=== PATIENT | male | born 1935 | race Caucasian/White ===

== ENCOUNTER 2019-09-15 20:29 | Inpatient (IN) | payer BC, MEDICARE ==
[~2019-09-15] VITALS: Ht 175.3 cm; Wt 74.5 kg
[~2019-09-15 20:29] MED LIST: AMIO200T4 PO; ASPI-630 PO; METO25TA4 PO; OXYC1TAB15 PO; WARF1TAB2 PO
[2019-09-15] MEDS ORDERED: IOHEXOL 350 MG/ML 100 ML VIAL. IV ONE (20:45)
--- NOTE | 2019-09-15 20:55 | RAD ---
INDICATION: Reason: ataxia / Spl. Instructions: / History: COMPARISON: None. TECHNIQUE: Axial CT images obtained through the head without intravenous contrast. One or more of the following individualized dose reduction techniques were utilized for this examination: 1. Automated exposure control; 2. Adjustment of the mA and/or kV according to patient size; 3. Use of iterative reconstruction technique. FINDINGS: No intracranial hemorrhage. No midline shift. Basal cisterns patents. Ventricles and sulci are globally prominent. No acute osseous abnormality. Orbits and paranasal sinuses unremarkable. Scattered foci of low attenuation within the white matter. IMPRESSION: 1. No acute intracranial hemorrhage. 2. Scattered regions of low attenuation within the white matter. Non-specific in nature but frequently secondary to small vessel ischemic disease. If there is clinical concern for acute cause MRI to better assess whether any of these foci are acute. 3. Prominence of ventricles and sulci which is frequently secondary to age related volume loss. 4. Report called to the patient's floor at 8:48 PM on date of exam. Electronically signed by: Jordon James MD (09/15/2019 8:52 PM) [id number]
[2019-09-15] MEDS ORDERED: CONTRAST GIVEN. MC PRN (21:00)
--- NOTE | 2019-09-15 21:08 | RAD ---
Exam: CTA head and neck INDICATION: Ataxia, left side TECHNIQUE: Sequential axial images through the head and neck obtained following the administration of 75 mL of Isovue-370 IV contrast. Sagittal and coronal reformatted images were reconstructed from the axial data and reviewed. 3-D reformatted images were reconstructed from the axial data and reviewed. Comparisons: CT head without contrast same day FINDINGS: CTA neck neck: Visualized portions of the vascular aorta are unremarkable. 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 Right common carotid artery is patent without evidence of stenosis, occlusion or aneurysm. Mild calcified plaque at the origin of the right internal carotid artery without significant stenosis. Left common carotid artery is patent without evidence of stenosis, occlusion or aneurysm. Mild calcified plaque at the origin of the left internal carotid artery without significant stenosis. Right vertebral artery is patent and terminates as the right PICA. Left vertebral artery is patent without evidence of stenosis, occlusion or aneurysm. Visualized soft tissues are unremarkable. CTA HEAD: Intracranial segments of the right internal carotid artery are patent without evidence of stenosis, occlusion or aneurysm. Right MCA is patent. Right JOJO is patent. Intracranial segments of the left internal carotid artery are patent without evidence of stenosis, occlusion or aneurysm. Left MCA is patent. Left JOJO is patent. Basilar artery is patent without evidence of stenosis, occlusion or aneurysm. precision assembly inspector are patent bilaterally. IMPRESSION: 1. No large vessel occlusion. 2. Mild plaque at the origin of the internal carotid arteries bilaterally without significant stenosis. Exposure: One or more of the following in the visualized dose reduction techniques were utilized for this examination: 1. Automated exposure control 2. Adjustment of the MA and/or KV according to patient size 3. Use of iterative of reconstructive technique FOR INTERNAL CODING PURPOSES Critical result: Findings discussed with Rahsida SAHA at 09/15/2019 9:02 PM. RESULT CODE: (C) Electronically signed by: Sandy Florez MD (09/15/2019 9:06 PM) [id number]
[2019-09-15] MEDS ORDERED: LABETALOL 20 MG/4 ML DISP.SYRIN. IVP PRN (21:15)
[2019-09-15 21:18] LABS: BASO # 0.1 x10^3/uL (0.0-0.2); BASO % 1 % (0-3); EOS # 0.2 x10^3/uL (0.0-0.7); EOS % 3 % (0-3); HEMOGLOBIN 13.1 g/dL (13.0-17.5); LYMPH # 1.7 x10^3/uL (1.0-4.8); LYMPH % 25 % (24-48); MEAN CORPUSCULAR HEMOGLOBIN 31 pg (25-35); MEAN CORPUSCULAR HGB CONC 35 g/dL (31-37); MEAN CORPUSCULAR VOLUME 87 fL (79-100); MONO # 0.7 x10^3/uL (0.0-1.1); MONO % 10 % (0-9); NEUT # 4.3 x10^3/uL (1.8-7.7); NEUT % 61 % (31-73); PLATELET COUNT 204 x10^3/uL (140-400); RED BLOOD COUNT 4.24 x10^6/uL (4.30-5.70); RED CELL DISTRIBUTION WIDTH 13.2 % (11.5-14.5)
--- NOTE | 2019-09-15 21:25 | RAD ---
Exam: Chest one view INDICATION: Ataxia TECHNIQUE: Dental view of the chest Comparisons: 11/05/2015 FINDINGS: Sternotomy wires are noted. Replaced cardiac valve seen. Heart is is mildly enlarged. Pulmonary vessels are within normal limits. The lung and pleural spaces are clear. IMPRESSION: No acute pulmonary process. Electronically signed by: Sandy Florez MD (09/15/2019 9:22 PM) [id number]
[2019-09-15 21:28] LABS: CALCIUM 8.3 mg/dL (8.5-10.1); CREATININE 1.3 mg/dL (0.7-1.3); GFR 52.5; POTASSIUM 3.8 mmol/L (3.5-5.1)
--- NOTE | 2019-09-15 21:28 | PHYS DOC ---
Past Medical History Past Medical History: Other Additional Past Medical Histor: murmer, prostate cancer Past Surgical History: Other Additional Past Surgical Histo: TURP; hernia Smoking Status: Former Smoker Alcohol Use: None Drug Use: None General Adult EDM: Chief Complaint: NEURO SYMPTOMS/DEFICITS HPI: HPI: 84-year-old male with last known normal at 1930 presents with left-sided weakness and ataxia of the left arm. Patient denies any pain. Patient was [facility] the [facility] when this began. Patient was able to call his son and says he had trouble using the left arm. Patient arrives via ambulance as a stroke alert. Symptoms are moderate in nature. Patient denies any a aphasia or difficulty speaking Review of Systems: Review of Systems: Constitutional: Denies fever or chills. [] Eyes: Denies change in visual acuity. [] HENT: Denies nasal congestion or sore throat. [] Respiratory: Denies cough or shortness of breath. [] Cardiovascular: Denies chest pain or edema. [] GI: Denies abdominal pain, nausea, vomiting, bloody stools or diarrhea. [] : Denies dysuria. [] Musculoskeletal: Denies back pain or joint pain. [] Integument: Denies rash. [] Neurologic: Denies headache, complains of weakness of left side and ataxia Endocrine: Denies polyuria or polydipsia. [] Lymphatic: Denies swollen glands. [] Psychiatric: Denies depression or anxiety. [] Heart Score: Risk Factors: Risk Factors: DM, Current or recent (<one month) smoker, HTN, HLP, family history of CAD, obesity. Risk Scores: Score 0 - 3: 2.5% MACE over next 6 weeks - Discharge Home Score 4 - 6: 20.3% MACE over next 6 weeks - Admit for Clinical Observation Score 7 - 10: 72.7% MACE over next 6 weeks - Early Invasive Strategies Current Medications: Current Medications Medications (Trade) Dose Ordered Sig/Caitlin Start Time Stop Time Status Last Admin Dose Admin Alteplase, Recombinant 66 ml @ 66 mls/hr Q1H 09/15/19 22:00 09/15/19 22:59 Info (CONTRAST GIVEN -- Rx MONITORING) 1 each PRN DAILY PRN 09/15/19 21:00 09/17/19 20:59 Iohexol (Omnipaque 350 Mg/ml) 75 ml 1X ONCE 09/15/19 20:45 09/15/19 20:46 DC 09/15/19 20:58 75 ML Labetalol HCl (Normodyne Iv Push) 10 mg PRN Q10MIN PRN 09/15/19 21:15 Sodium Chloride 50 ml @ 0 mls/hr 1X ONCE 09/15/19 23:00 09/15/19 23:01 Allergies: Allergies: Allergies Coded Allergies Type Severity Reaction Last Updated Verified No Known Drug Allergies 09/19/15 No Physical Exam: PE: Constitutional: Well developed, well nourished, no acute distress, non-toxic appearance. [] HENT: Normocephalic, atraumatic, bilateral external ears normal, oropharynx moist, no oral exudates, nose normal. [] Eyes: PERRLA, EOMI, conjunctiva normal, no discharge. [] Neck: Normal range of motion, no tenderness, supple, no stridor. [] Cardiovascular:Heart rate regular rhythm, no murmur [] Lungs & Thorax: Bilateral breath sounds clear to auscultation [] Abdomen: Bowel sounds normal, soft, no tenderness, no masses, no pulsatile masses. [] Skin: Warm, dry, no erythema, no rash. [] Back: No tenderness, no CVA tenderness. [] Extremities: No tenderness, no cyanosis, no clubbing, ROM intact, no edema. [] Neurologic: Alert and oriented X 3, mild weakness of left arm and left leg. Abnormal cerebellar exam especially on the left. Psychologic: Affect normal, judgement normal, mood normal. [] Current Patient Data: Labs: Laboratory Tests Test 09/15/19 21:00 White Blood Count 7.0 x10^3/uL Red Blood Count 4.24 x10^6/uL Hemoglobin 13.1 g/dL Hematocrit 37.0 % Mean Corpuscular Volume 87 fL Mean Corpuscular Hemoglobin 31 pg Mean Corpuscular Hemoglobin Concent 35 g/dL Red Cell Distribution Width 13.2 % Platelet Count 204 x10^3/uL Neutrophils (%) (Auto) 61 % Lymphocytes (%) (Auto) 25 % Monocytes (%) (Auto) 10 % Eosinophils (%) (Auto) 3 % Basophils (%) (Auto) 1 % Neutrophils # (Auto) 4.3 x10^3/uL Lymphocytes # (Auto) 1.7 x10^3/uL Monocytes # (Auto) 0.7 x10^3/uL Eosinophils # (Auto) 0.2 x10^3/uL Basophils # (Auto) 0.1 x10^3/uL Prothrombin Time 13.6 SEC Prothromb Time International Ratio 1.1 Activated Partial Thromboplast Time 35 SEC Sodium Level 141 mmol/L Potassium Level 3.8 mmol/L Chloride Level 107 mmol/L Carbon Dioxide Level 26 mmol/L Anion Gap 8 Blood Urea Nitrogen 14 mg/dL Creatinine 1.3 mg/dL Estimated GFR (Cockcroft-Gault) 52.5 BUN/Creatinine Ratio 11 Glucose Level 133 mg/dL Calcium Level 8.3 mg/dL Total Bilirubin 0.3 mg/dL Aspartate Amino Transf (AST/SGOT) 15 U/L Alanine Aminotransferase (ALT/SGPT) 19 U/L Alkaline Phosphatase 68 U/L Troponin I Quantitative < 0.017 ng/mL Total Protein 6.4 g/dL Albumin 3.5 g/dL Albumin/Globulin Ratio 1.2 Current Medications Medications (Trade) Dose Ordered Sig/Caitlin Route PRN Reason Start Time Stop Time Status Last Admin Dose Admin Iohexol (Omnipaque 350 Mg/ml) 75 ml 1X ONCE IV 09/15/19 20:45 09/15/19 20:46 DC 09/15/19 20:58 Info (CONTRAST GIVEN -- Rx MONITORING) 1 each PRN DAILY PRN SEE COMMENTS 09/15/19 21:00 09/17/19 20:59 Alteplase, Recombinant 0 ml @ 0 mls/hr 1X ONCE IV 09/15/19 22:00 09/15/19 22:01 DC 09/15/19 21:31 Alteplase, Recombinant 66 ml @ 66 mls/hr Q1H IV 09/15/19 22:00 09/15/19 22:59 DC 09/15/19 21:32 Sodium Chloride 50 ml @ 0 mls/hr 1X ONCE IV 09/15/19 23:00 09/15/19 23:01 DC 09/15/19 22:32 Labetalol HCl (Normodyne Iv Push) 10 mg PRN Q10MIN PRN IVP HYPERTENSION 09/15/19 21:15 Nicardipine HCl 50 mg/Sodium Chloride 250 ml @ 25 mls/hr CONT PRN IV SEE I/O RECORD 09/15/19 22:15 Laboratory Tests Test 09/15/19 21:00 White Blood Count 7.0 x10^3/uL (4.0-11.0) Red Blood Count 4.24 x10^6/uL (4.30-5.70) L Hemoglobin 13.1 g/dL (13.0-17.5) Hematocrit 37.0 % (39.0-53.0) L Mean Corpuscular Volume 87 fL (79-100) Mean Corpuscular Hemoglobin 31 pg (25-35) Mean Corpuscular Hemoglobin Concent 35 g/dL (31-37) Red Cell Distribution Width 13.2 % (11.5-14.5) Platelet Count 204 x10^3/uL (140-400) Neutrophils (%) (Auto) 61 % (31-73) Lymphocytes (%) (Auto) 25 % (24-48) Monocytes (%) (Auto) 10 % (0-9) H Eosinophils (%) (Auto) 3 % (0-3) Basophils (%) (Auto) 1 % (0-3) Neutrophils # (Auto) 4.3 x10^3/uL (1.8-7.7) Lymphocytes # (Auto) 1.7 x10^3/uL (1.0-4.8) Monocytes # (Auto) 0.7 x10^3/uL (0.0-1.1) Eosinophils # (Auto) 0.2 x10^3/uL (0.0-0.7) Basophils # (Auto) 0.1 x10^3/uL (0.0-0.2) Laboratory Tests 09/15/19 21:00 EKG: EKG: [] EKG normal sinus rhythm with a rate of 63 left axis deviation left anterior hemiblock, PVCs, nonspecific ST changes Radiology/Procedures: Radiology/Procedures: [][facility] [address] [place] [address] IMAGING REPORT Signed PATIENT: PADDY GLASS LACCOUNT: [id number] : 1935 LOCATION: ER AGE: 84 SEX: M EXAM STATUS: PRE ER ORD. PHYSICIAN: LEXA PARADA MD REASON: ataxia PROCEDURE: PORTABLE CHEST 1V Exam: Chest one view INDICATION: Ataxia TECHNIQUE: Dental view of the chest Comparisons: 11/05/2015 FINDINGS: Sternotomy wires are noted. Replaced cardiac valve seen. Heart is is mildly enlarged. Pulmonary vessels are within normal limits. The lung and pleural spaces are clear. IMPRESSION: No acute pulmonary process. Electronically signed by: Sandy Madrid MD (09/15/2019 9:22 PM) [id number] DICTATED and SIGNED BY: SANDY MADRID MD DATE: 09/15/192121 [facility] [address] [place], [place] [id number] IMAGING REPORT Signed PATIENT: PADDY GLASS LACCOUNT: [id number] : 1935 LOCATION: ER AGE: 84 SEX: M EXAM STATUS: PRE ER ORD. PHYSICIAN: LEXA PARADA MD REASON: ataxia PROCEDURE: CT CODE STROKE HEAD WO INDICATION: Reason: ataxia / Spl. Instructions: / History: COMPARISON: None. TECHNIQUE: Axial CT images obtained through the head without intravenous contrast. One or more of the following individualized dose reduction techniques were utilized for this examination: 1. Automated exposure control; 2. Adjustment of the mA and/or kV according to patient size; 3. Use of iterative reconstruction technique. FINDINGS: No intracranial hemorrhage. No midline shift. Basal cisterns patents. Ventricles and sulci are globally prominent. No acute osseous abnormality. Orbits and paranasal sinuses unremarkable. Scattered foci of low attenuation within the white matter. IMPRESSION: 1. No acute intracranial hemorrhage. 2. Scattered regions of low attenuation within the white matter. Non-specific in nature but frequently secondary to small vessel ischemic disease. If there is clinical concern for acute cause MRI to better assess whether any of these foci are acute. 3. Prominence of ventricles and sulci which is frequently secondary to age related volume loss. 4. Report called to the patient's floor at 8:48 PM on date of exam. Electronically signed by: Martin Bardales MD (09/15/2019 8:52 PM) [id number] DICTATED and SIGNED BY: MARTIN BARDALES MD DATE: 09/15/192051 [facility] [address] [place] [address] IMAGING REPORT Signed PATIENT: PADDY GLASSOUNT: [id number] : 1935 LOCATION: ER AGE: 84 SEX: M EXAM STATUS: PRE ER ORD. PHYSICIAN: LEXA PARADA MD REASON: ataxia-L SIDE PROCEDURE: CTA HEAD/NECK - CODE STROKE Exam: CTA head and neck INDICATION: Ataxia, left side TECHNIQUE: Sequential axial images through the head and neck obtained following the administration of 75 mL of Isovue-370 IV contrast. Sagittal and coronal reformatted images were reconstructed from the axial data and reviewed. 3-D reformatted images were reconstructed from the axial data and reviewed. Comparisons: CT head without contrast same day FINDINGS: CTA neck neck: Visualized portions of the vascular aorta are unremarkable. 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 Right common carotid artery is patent without evidence of stenosis, occlusion or aneurysm. Mild calcified plaque at the origin of the right internal carotid artery without significant stenosis. Left common carotid artery is patent without evidence of stenosis, occlusion or aneurysm. Mild calcified plaque at the origin of the left internal carotid artery without significant stenosis. Right vertebral artery is patent and terminates as the right PICA. Left vertebral artery is patent without evidence of stenosis, occlusion or aneurysm. Visualized soft tissues are unremarkable. CTA HEAD: Intracranial segments of the right internal carotid artery are patent without evidence of stenosis, occlusion or aneurysm. Right MCA is patent. Right JOJO is patent. Intracranial segments of the left internal carotid artery are patent without evidence of stenosis, occlusion or aneurysm. Left MCA is patent. Left JOJO is patent. Basilar artery is patent without evidence of stenosis, occlusion or aneurysm. needle molder are patent bilaterally. IMPRESSION: 1. No large vessel occlusion. 2. Mild plaque at the origin of the internal carotid arteries bilaterally without significant stenosis. Exposure: One or more of the following in the visualized dose reduction techniques were utilized for this examination: 1. Automated exposure control 2. Adjustment of the MA and/or KV according to patient size 3. Use of iterative of reconstructive technique FOR INTERNAL CODING PURPOSES Critical result: Findings discussed with Rashida SAHA at 09/15/2019 9:02 PM. RESULT CODE: (C) Electronically signed by: Sandy Madrid MD (09/15/2019 9:06 PM) [id number] DICTATED and SIGNED BY: SANDY MADRID MD DATE: 09/15/192105 Course & Med Decision Making: Course & Med Decision Making Pertinent Labs and Imaging studies reviewed. (See chart for details) Administer stroke scale items in the order listed. Record performance in each category after each subscale exam. Do not go back and change scores. Follow directions provided for each exam technique. Scores should reflect what the patient does, not what the clinician thinks the patient can do. The clinician should record answers while administering the exam and work quickly. Except where indicated, the patient should not be coached (i.e., repeated requests to patient to make a special effort). 1a. Level of Consciousness: The fraud investigator must choose a response if a full evaluation is prevented by such obstacles as an endotracheal tube, language barrier, orotracheal trauma/bandages. A 3 is scored only if the patient makes no movement (other than reflexive posturing) in response to noxious stimulation. 0 = Alert; keenly responsive. 1b. LOC Questions: The patient is asked the month and his/her age. The answer must be correct - there is no partial credit for being close. Aphasic and stuporous patients who do not comprehend the questions will score 2. Patients unable to speak because of endotracheal intubation, orotracheal trauma, severe dysarthria from any cause, language barrier, or any other problem not secondary to aphasia are given a 1. It is important that only the initial answer be graded and that the examiner not "help" the patient with verbal or non-verbal cues. 0 = Answers both questions correctly. 1c. LOC Commands: The patient is asked to open and close the eyes and then to machine load clerk and release the non-paretic hand. Substitute another one step command if the hands cannot be used. Credit is given if an unequivocal attempt is made but not completed due to weakness. If the patient does not respond to command, the task should be demonstrated to him or her (pantomime), and the result scored (i.e., follows none, one or two commands). Patients with trauma, amputation, or other physical impediments should be given suitable one-step commands. Only the first attempt is scored. 0 = Performs both tasks correctly 2. Best Gaze: Only horizontal eye movements will be tested. Voluntary or reflexive (oculocephalic) eye movements will be scored, but caloric testing is not done. If the patient has a conjugate deviation of the eyes that can be overcome by voluntary or reflexive activity, the score will be 1. If a patient has an isolated peripheral nerve paresis (CN III, IV or ), score a 1. Gaze is testable in all aphasic patients. Patients with ocular trauma, bandages, pre-existing blindness, or other disorder of visual acuity or molina should be tested with reflexive movements, and a choice made by the fraud investigator. Establishing eye contact and then moving about the patient from side to side will occasionally clarify the presence of a partial gaze palsy. 0 = Normal. 3. Visual: Visual molina (upper and lower quadrants) are tested by confrontation, using finger counting or visual threat, as appropriate. Patients may be encouraged, but if they look at the side of the moving fingers appropriately, this can be scored as normal. If there is unilateral blindness or enucleation, visual molina in the remaining eye are scored. Score 1 only if a clear-cut asymmetry, including quadrantanopia, is found. If patient is blind from any cause, score 3. Double simultaneous stimulation is performed at this point. If there is extinction, patient receives a 1, and the results are used to respond to item 11. 0 = No visual loss. 4. Facial Palsy: Ask - or use pantomime to encourage - the patient to show teeth or raise eyebrows and close eyes. Score symmetry of grimace in response to noxious stimuli in the poorly responsive or non-comprehending patient. If facial trauma/bandages, orotracheal tube, tape or other physical barriers obscure the face, these should be removed to the extent possible. 0 = Normal symmetrical movements. 5. Motor Arm: The limb is placed in the appropriate position: extend the arms (palms down) 90 degrees (if sitting) or 45 degrees (if supine). Drift is scored if the arm falls before 10 seconds. The aphasic patient is encouraged using urgency in the voice and pantomime, but not noxious stimulation. Each limb is tested in turn, beginning with the non-paretic arm. Only in the case of amputation or joint fusion at the shoulder, the examiner should record the score as untestable (UN), and clearly write the explanation for this choice. 5a. Left Arm 2 = Some effort against gravity; limb cannot get to or maintain (if cued) 90 (or 45) degrees, drifts down to bed, but has some effort against gravity. 5b. Right Arm 0 6. Motor Leg: The limb is placed in the appropriate position: hold the leg at 30 degrees (always tested supine). Drift is scored if the leg falls before 5 seconds. The aphasic patient is encouraged using urgency in the voice and pantomime, but not noxious stimulation. Each limb is tested in turn, beginning with the non-paretic leg. Only in the case of amputation or joint fusion at the hip, the examiner should record the score as untestable (UN), and clearly write the explanation for this choice. 0 = No drift; leg holds 30-degree position for full 5 seconds. 1 = Drift; leg falls by the end of the 5-second period but does not hit bed. 2 = Some effort against gravity; leg falls to bed by 5 seconds, but has some effort against gravity. 3 = No effort against gravity; leg falls to bed immediately. 4 = No movement. UN = Amputation or joint fusion, explain: 6a. Left Leg 2 = Some effort against gravity; leg falls to bed by 5 seconds, but has some effort against gravity. 6b. Right Leg 0 = No drift; leg holds 30-degree position for full 5 seconds. 7. Limb Ataxia: This item is aimed at finding evidence of a unilateral cerebellar lesion. Test with eyes open. In case of visual defect, ensure testing is done in intact visual field. The [id number] and heel-glass tests are performed on both sides, and ataxia is scored only if present out of proportion to weakness. Ataxia is absent in the patient who cannot understand or is paralyzed. Only in the case of amputation or joint fusion, the examiner should record the score as untestable (UN), and clearly write the explanation for this choice. In case of blindness, test by having the patient touch nose from extended arm position. 2 = Present in two limbs. 8. Sensory: Sensation or grimace to pinprick when tested, or withdrawal from noxious stimulus in the obtunded or aphasic patient. Only sensory loss attributed to stroke is scored as abnormal and the examiner should test as many body areas (arms [not hands], legs, trunk, face) as needed to accurately check for hemisensory loss. A score of 2, "severe or total sensory loss," should only be given when a severe or total loss of sensation can be clearly demonstrated. Stuporous and aphasic patients will, therefore, probably score 1 or 0. The patient with brainstem stroke who has bilateral loss of sensation is scored 2. If the patient does not respond and is quadriplegic, score 2. Patients in a coma (item 1a=3) are automatically given a 2 on this item. 0 = Normal; no sensory loss. 9. Best Language: A great deal of information about comprehension will be obtained during the preceding sections of the examination. For this scale item, the patient is asked to describe what is happening in the attached picture, to name the items on the attached naming sheet and to read from the attached list of sentences. Comprehension is judged from responses here, as well as to all of the commands in the preceding general neurological exam. If visual loss interferes with the tests, ask the patient to identify objects placed in the hand, repeat, and produce speech. The intubated patient should be asked to write. The patient in a coma (item 1a=3) will automatically score 3 on this item. The examiner must choose a score for the patient with stupor or limited cooperation, but a score of 3 should be used only if the patient is mute and follows no one-step commands. 0 = No aphasia; normal. 10. Dysarthria: If patient is thought to be normal, an adequate sample of speech must be obtained by asking patient to read or repeat words from the attached list. If the patient has severe aphasia, the clarity of articulation of spontaneous speech can be rated. Only if the patient is intubated or has other physical barriers to producing speech, the examiner should record the score as untestable (UN), and clearly write an explanation for this choice. Do not tell the patient why he or she is being tested. 0 = Normal. or other physical barrier, explain: Interval: [ ] Baseline [ ] 2 hours post treatment [ ] 24 hours post onset of symptoms 20 minutes [ ] 7-10 days [ ] 3 months [ ] Other ( ) 11. Extinction and Inattention (formerly Neglect): Sufficient information to identify neglect may be obtained during the prior testing. If the patient has a severe visual loss preventing visual double simultaneous stimulation, and the cutaneous stimuli are normal, the score is normal. If the patient has aphasia but does appear to attend to both sides, the score is normal. The presence of visual spatial neglect or anosagnosia may also be taken as evidence of abnormality. Since the abnormality is scored only if present, the item is never untestable. 0 = No abnormality. Upon arrival I activated a stroke code. Patient had obvious left-sided weakness and ataxia especially with the left arm. Per report patient has a history of A. fib and valve replacement and had been on blood thinners in the past patient says he is not on them now. I spoke with the son who states he is not on blood thinners and spoke with his power of real estate associate attorney daughter named Brenda who also reiterated that he has not on blood thinners. I got permission from her to administer TPA. Patient has a NIH stroke scale of 6. 2114 no TPA was ordered and I informed the nurses that we needed to get it stat from pharmacy as we had approximately 15 minutes to get the TPA on board. I paged Dr. Sinclair around 2109 and her back from him at 2122 after the TPA target ordered but he was in agreement that the TPA should be administered. Patient has no contraindications for TPA and TPA was given. At 2314 patient was reassessed and his symptoms almost completely resolved. Patient did have some transient high blood pressure and a Cardene drip has been ordered. I spoke with the hospitalist who will admit patient to the ICU. Critical care time was [40] minutes exclusive of procedures. Critical care time was [40] minutes which includes time at bedside, spent in discussion of patient's care with specialist and/or family members, with interpretation of laboratory and/or radiological studies and is exclusive of procedures. Critical condition: Acute ischemic stroke Critical interventions: TPA administration Cardene administration, admission to the ICU with neuro consult. Dana Disclaimer: Dana Disclaimer: This electronic medical record was generated, in whole or in part, using a voice recognition dictation system. Departure Departure Impression: Primary Impression: Ischemic stroke Disposition: ADMITTED INPATIENT Condition: CRITICAL Referrals: BRICE CARPENTER MD (PCP) Justicifation of Admission Dx: Justifications for Admission: Justification of Admission Dx: Yes Stroke - Ischemic: Stroke-Ischemic LEXA PARADA MD Sep 15, 2019 21:28
[2019-09-15 21:31] LABS: PROTHROMBIN TIME PATIENT 13.6 SEC (11.7-14.0)
[2019-09-15 21:35] LABS: ALBUMIN 3.5 g/dL (3.4-5.0); ALBUMIN/GLOBULIN RATIO 1.2 (1.0-1.7); TOTAL BILIRUBIN 0.3 mg/dL (0.2-1.0); TOTAL PROTEIN 6.4 g/dL (6.4-8.2)
[2019-09-15] MEDS ORDERED: ALTEPLASE IV SCH (22:00)
[2019-09-15] MEDS ORDERED: ALTEPLASE IV ONE (22:00)
[2019-09-15] MEDS ORDERED: IV NORMAL SALINE 50ML 50 ML IV ONE (23:00)
[2019-09-16] VITALS (24 sets, daily range): BP systolic 116–152; BP diastolic 58–77
--- NOTE | 2019-09-16 02:39 | NUR ---
Patient admitted to room 108 from ER accompanied by ER nurse. Patient moved self from cart to ICU bed. Monitor on. VSS. SR noted. NIH completed by this nurse and ER nurse. Score 0. Patient A&O x4. MOJICA with equal strength. DEBRA. Assessment completed. RA. No complaints of pain or discomfort at this time. Call light within reach. Will monitor.
[2019-09-16] MEDS ORDERED: CYAN-9 PO (06:45)
--- NOTE | 2019-09-16 11:25 | PDOC1 ---
History and Physical Date of Admission Date of Admission DATE: 09/16/19 TIME: 10:57 Identification/Chief Complaint Chief Complaint left sided weakness. 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 last known normal around 730 pm 09/15/19. patient called son and advised to call ambulance. came via ambulance for a stroke alert. patient denied any aphasia, facial numbness, tingling, focal weakness. upon arrival VSS. upon arrival stroke code activated. besides left arm weakness no other symptoms. patient had NIH stroke scale 6. TPA given with complete resolution of symptoms. patient had some transient elevated BP and cardene drip given. transfered to ICU. seen this AM and feels well. 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 Past Surgical History Past Surgical History: Other Family History Family History: No Significant Social History Smoke: No ALCOHOL: none Drugs: None Current Problem List Problem List Problems Medical Problems: (1) Ischemic stroke Status: Acute Current Medications Current Medications Current Medications Iohexol (Omnipaque 350 Mg/ml) 75 ml 1X ONCE IV Last administered on 09/15/19at 20:58; Start 09/15/19 at 20:45; Stop 09/15/19 at 20:46; Status DC Info (CONTRAST GIVEN -- Rx MONITORING) 1 each PRN DAILY PRN MC SEE COMMENTS; Start 09/15/19 at 21:00; Stop 09/17/19 at 20:59 Alteplase, Recombinant 0 ml @ 0 mls/hr 1X ONCE IV Last administered on 09/15/19at 21:31; Start 09/15/19 at 22:00; Stop 09/15/19 at 22:01; Status DC Alteplase, Recombinant 66 ml @ 66 mls/hr Q1H IV Last administered on 09/15/19at 21:32; Start 09/15/19 at 22:00; Stop 09/15/19 at 22:59; Status DC Sodium Chloride 50 ml @ 0 mls/hr 1X ONCE IV Last administered on 09/15/19at 22:32; Start 09/15/19 at 23:00; Stop 09/15/19 at 23:01; Status DC Labetalol HCl (Normodyne Iv Push) 10 mg PRN Q10MIN PRN IVP HYPERTENSION; Start 09/15/19 at 21:15 Nicardipine HCl 50 mg/Sodium Chloride 250 ml @ 25 mls/hr CONT PRN IV SEE I/O RECORD; Start 09/15/19 at 22:15 Active Scripts Active Reported Vitamin B-12 (Cyanocobalamin (Vitamin B-12)) 1,000 Mcg Capsule 1,000 Mcg PO DAILY Aspirin 81 Mg Tab.chew 81 Mg PO Allergies Allergies: Coded Allergies: No Known Drug Allergies (Unverified , 09/19/15) ROS Review of System CONSTITUTIONAL: No fever or chills EYES: No recent changes SKIN: No rash or itching CARDIOVASCULAR: No chest pain, syncope, palpitations, or edema RESPIRATORY: No SOB or cough GASTROINTESTINAL: No nausea, vomiting or abdominal pain NEUROLOGICAL: No headaches or weakness ENDOCRINE: No cold or heat intolerance GENITOURINARY: No urgency or frequency of urination MUSCULOSKELETAL: No back pain or joint pain LYMPHATICS: No enlarged lymph nodes PSYCHIATRIC: No anxiety or depression Physical Exam Physical Exam GENERAL: No apparent distress. Alert and oriented. HEENT: Head normocephalic, atraumatic. NECK: Supple LUNGS: Clear to auscultation. HEART: RRR, S1, S2 present, pulses intact ABDOMEN: Soft, positive bowel sounds. EXTREMITIES: No cyanosis or edema. NEUROLOGIC: Normal speech, normal tone PSYCHIATRIC: Normal affect, normal mood. SKIN: No ulceration. Vitals Vitals Vital Signs Date Time Temp Pulse Resp B/P (MAP) Pulse Ox O2 Delivery O2 Flow Rate FiO2 09/16/19 09:01 59 16 143/77 (99) 97 Room Air 09/16/19 08:00 98.2 98.2 Labs Labs Laboratory Tests Test 09/15/19 21:00 White Blood Count 7.0 x10^3/uL (4.0-11.0) Red Blood Count 4.24 x10^6/uL (4.30-5.70) Hemoglobin 13.1 g/dL (13.0-17.5) Hematocrit 37.0 % (39.0-53.0) Mean Corpuscular Volume 87 fL (79-100) Mean Corpuscular Hemoglobin 31 pg (25-35) Mean Corpuscular Hemoglobin Concent 35 g/dL (31-37) Red Cell Distribution Width 13.2 % (11.5-14.5) Platelet Count 204 x10^3/uL (140-400) Neutrophils (%) (Auto) 61 % (31-73) Lymphocytes (%) (Auto) 25 % (24-48) Monocytes (%) (Auto) 10 % (0-9) Eosinophils (%) (Auto) 3 % (0-3) Basophils (%) (Auto) 1 % (0-3) Neutrophils # (Auto) 4.3 x10^3/uL (1.8-7.7) Lymphocytes # (Auto) 1.7 x10^3/uL (1.0-4.8) Monocytes # (Auto) 0.7 x10^3/uL (0.0-1.1) Eosinophils # (Auto) 0.2 x10^3/uL (0.0-0.7) Basophils # (Auto) 0.1 x10^3/uL (0.0-0.2) Prothrombin Time 13.6 SEC (11.7-14.0) Prothromb Time International Ratio 1.1 (0.8-1.1) Activated Partial Thromboplast Time 35 SEC (24-38) Sodium Level 141 mmol/L (136-145) Potassium Level 3.8 mmol/L (3.5-5.1) Chloride Level 107 mmol/L (98-107) Carbon Dioxide Level 26 mmol/L (21-32) Anion Gap 8 (6-14) Blood Urea Nitrogen 14 mg/dL (8-26) Creatinine 1.3 mg/dL (0.7-1.3) Estimated GFR (Cockcroft-Gault) 52.5 BUN/Creatinine Ratio 11 (6-20) Glucose Level 133 mg/dL (70-99) Calcium Level 8.3 mg/dL (8.5-10.1) Total Bilirubin 0.3 mg/dL (0.2-1.0) Aspartate Amino Transf (AST/SGOT) 15 U/L (15-37) Alanine Aminotransferase (ALT/SGPT) 19 U/L (16-63) Alkaline Phosphatase 68 U/L (46-116) Troponin I Quantitative < 0.017 ng/mL (0.000-0.055) Total Protein 6.4 g/dL (6.4-8.2) Albumin 3.5 g/dL (3.4-5.0) Albumin/Globulin Ratio 1.2 (1.0-1.7) Laboratory Tests Test 09/15/19 21:00 White Blood Count 7.0 x10^3/uL (4.0-11.0) Red Blood Count 4.24 x10^6/uL (4.30-5.70) Hemoglobin 13.1 g/dL (13.0-17.5) Hematocrit 37.0 % (39.0-53.0) Mean Corpuscular Volume 87 fL (79-100) Mean Corpuscular Hemoglobin 31 pg (25-35) Mean Corpuscular Hemoglobin Concent 35 g/dL (31-37) Red Cell Distribution Width 13.2 % (11.5-14.5) Platelet Count 204 x10^3/uL (140-400) Neutrophils (%) (Auto) 61 % (31-73) Lymphocytes (%) (Auto) 25 % (24-48) Monocytes (%) (Auto) 10 % (0-9) Eosinophils (%) (Auto) 3 % (0-3) Basophils (%) (Auto) 1 % (0-3) Neutrophils # (Auto) 4.3 x10^3/uL (1.8-7.7) Lymphocytes # (Auto) 1.7 x10^3/uL (1.0-4.8) Monocytes # (Auto) 0.7 x10^3/uL (0.0-1.1) Eosinophils # (Auto) 0.2 x10^3/uL (0.0-0.7) Basophils # (Auto) 0.1 x10^3/uL (0.0-0.2) Prothrombin Time 13.6 SEC (11.7-14.0) Prothromb Time International Ratio 1.1 (0.8-1.1) Activated Partial Thromboplast Time 35 SEC (24-38) Sodium Level 141 mmol/L (136-145) Potassium Level 3.8 mmol/L (3.5-5.1) Chloride Level 107 mmol/L (98-107) Carbon Dioxide Level 26 mmol/L (21-32) Anion Gap 8 (6-14) Blood Urea Nitrogen 14 mg/dL (8-26) Creatinine 1.3 mg/dL (0.7-1.3) Estimated GFR (Cockcroft-Gault) 52.5 BUN/Creatinine Ratio 11 (6-20) Glucose Level 133 mg/dL (70-99) Calcium Level 8.3 mg/dL (8.5-10.1) Total Bilirubin 0.3 mg/dL (0.2-1.0) Aspartate Amino Transf (AST/SGOT) 15 U/L (15-37) Alanine Aminotransferase (ALT/SGPT) 19 U/L (16-63) Alkaline Phosphatase 68 U/L (46-116) Troponin I Quantitative < 0.017 ng/mL (0.000-0.055) Total Protein 6.4 g/dL (6.4-8.2) Albumin 3.5 g/dL (3.4-5.0) Albumin/Globulin Ratio 1.2 (1.0-1.7) VTE Prophylaxis Ordered VTE Prophylaxis Devices: Yes VTE Pharmacological Prophylaxi: Yes Assessment/Plan Assessment/Plan ASSESSMENT Left Sided weakness secondary to CVA Severe s/p AVR and MVR previously on coumadin but now not on AC Prostate cancer hx of post op afib PLAN admit to ICU neuro checks q4 hrs follow BP PT/OT/Speech consult stroke education neuro consult TTE with bubble study TSH, a1c, lipids await neuro recommendations on further imaging. DVT ppx full code spoke to son and updated him on plan of care. Justicifation of Admission Dx: Justifications for Admission: Justification of Admission Dx: Yes Stroke - Ischemic: Stroke-Ischemic LEONARDO LAI MD Sep 16, 2019 11:25
[2019-09-16 11:31] LABS: CHOLESTEROL/HDL RATIO 3.4
--- NOTE | 2019-09-16 15:23 | PDOC2 ---
CONSULT Date of Consult Date of Consult DATE: 09/16/19 TIME: 15:23 Reason for Consult Reason for Consult: CVA Identification/Chief Complaint Chief Complaint left side weakness History of Present Illness Reason for Visit: This patient is 84-year-old man with past medical history of multiple medical problems he presented to emergency room with acute onset of symptoms of left- sided weakness, numbness. Patient was having some slurring of speech. Patient presented to emergency room as a stroke activation. Patient denied any complaint of headache nausea or vomiting chest pain shortness of breath. Patient was within the window for IV t-PA. Patient accepted risk and benefit for IV t-PA. Patient received IV t-PA patient had improvement in symptoms. Patient was admitted to ICU for further monitoring., workup. Past Medical History Cardiovascular: Aortic stenosis, Valve insufficiency Heme/Onc: Other Renal/: Prostate Ca. Past Surgical History Past Surgical History: Other Family History Family History: No Significant Social History No ALCOHOL: none Drugs: None Current Problem List Problem List Problems Medical Problems: (1) Ischemic stroke Status: Acute Current Medications Current Medications Current Medications Iohexol (Omnipaque 350 Mg/ml) 75 ml 1X ONCE IV Last administered on 09/15/19at 20:58; Start 09/15/19 at 20:45; Stop 09/15/19 at 20:46; Status DC Info (CONTRAST GIVEN -- Rx MONITORING) 1 each PRN DAILY PRN MC SEE COMMENTS; Start 09/15/19 at 21:00; Stop 09/17/19 at 20:59 Alteplase, Recombinant 0 ml @ 0 mls/hr 1X ONCE IV Last administered on 09/15/19at 21:31; Start 09/15/19 at 22:00; Stop 09/15/19 at 22:01; Status DC Alteplase, Recombinant 66 ml @ 66 mls/hr Q1H IV Last administered on 09/15/19at 21:32; Start 09/15/19 at 22:00; Stop 09/15/19 at 22:59; Status DC Sodium Chloride 50 ml @ 0 mls/hr 1X ONCE IV Last administered on 09/15/19at 22:32; Start 09/15/19 at 23:00; Stop 09/15/19 at 23:01; Status DC Labetalol HCl (Normodyne Iv Push) 10 mg PRN Q10MIN PRN IVP HYPERTENSION; Start 09/15/19 at 21:15 Nicardipine HCl 50 mg/Sodium Chloride 250 ml @ 25 mls/hr CONT PRN IV SEE I/O RECORD; Start 09/15/19 at 22:15 Active Scripts Active Reported Vitamin B-12 (Cyanocobalamin (Vitamin B-12)) 1,000 Mcg Capsule 1,000 Mcg PO DAILY Aspirin 81 Mg Tab.chew 81 Mg PO Allergies Allergies: Coded Allergies: No Known Drug Allergies (Unverified , 09/19/15) Physical Exam Physical Exam General no acute distress. HEENT: Normocephalic and atraumatic. NECK: Supple without bruit Respiratory: Clear to auscultation bilaterally Heart: Regular rate and rhythm, S1S2 normal NEUROLOGIC: Mental status Alert oriented. Cranial nerve equally reactive pupils, and intact extraocular movements. No facial asymmetry. Palate elevates and tongue protrudes in midline. Reflexes are 1-2 with flexor plantar responses. Coordination no dysmetria Strength able to move all exts equally. Sensory exam is intact for light touch and pinprick. Gait in bed. A 10-point review of systems was obtained. Other than the history of present illness the remainder of the review of systems is negative. Vitals VITALS Vital Signs Date Time Temp Pulse Resp B/P (MAP) Pulse Ox O2 Delivery O2 Flow Rate FiO2 09/16/19 12:00 Room Air 09/16/19 12:00 59 16 152/70 (97) 97 09/16/19 08:00 98.2 98.2 Labs Labs Laboratory Tests Test 09/15/19 21:00 09/16/19 10:05 White Blood Count 7.0 x10^3/uL (4.0-11.0) Red Blood Count 4.24 x10^6/uL (4.30-5.70) Hemoglobin 13.1 g/dL (13.0-17.5) Hematocrit 37.0 % (39.0-53.0) Mean Corpuscular Volume 87 fL (79-100) Mean Corpuscular Hemoglobin 31 pg (25-35) Mean Corpuscular Hemoglobin Concent 35 g/dL (31-37) Red Cell Distribution Width 13.2 % (11.5-14.5) Platelet Count 204 x10^3/uL (140-400) Neutrophils (%) (Auto) 61 % (31-73) Lymphocytes (%) (Auto) 25 % (24-48) Monocytes (%) (Auto) 10 % (0-9) Eosinophils (%) (Auto) 3 % (0-3) Basophils (%) (Auto) 1 % (0-3) Neutrophils # (Auto) 4.3 x10^3/uL (1.8-7.7) Lymphocytes # (Auto) 1.7 x10^3/uL (1.0-4.8) Monocytes # (Auto) 0.7 x10^3/uL (0.0-1.1) Eosinophils # (Auto) 0.2 x10^3/uL (0.0-0.7) Basophils # (Auto) 0.1 x10^3/uL (0.0-0.2) Prothrombin Time 13.6 SEC (11.7-14.0) Prothromb Time International Ratio 1.1 (0.8-1.1) Activated Partial Thromboplast Time 35 SEC (24-38) Sodium Level 141 mmol/L (136-145) Potassium Level 3.8 mmol/L (3.5-5.1) Chloride Level 107 mmol/L (98-107) Carbon Dioxide Level 26 mmol/L (21-32) Anion Gap 8 (6-14) Blood Urea Nitrogen 14 mg/dL (8-26) Creatinine 1.3 mg/dL (0.7-1.3) Estimated GFR (Cockcroft-Gault) 52.5 BUN/Creatinine Ratio 11 (6-20) Glucose Level 133 mg/dL (70-99) Calcium Level 8.3 mg/dL (8.5-10.1) Total Bilirubin 0.3 mg/dL (0.2-1.0) Aspartate Amino Transf (AST/SGOT) 15 U/L (15-37) Alanine Aminotransferase (ALT/SGPT) 19 U/L (16-63) Alkaline Phosphatase 68 U/L (46-116) Troponin I Quantitative < 0.017 ng/mL (0.000-0.055) Total Protein 6.4 g/dL (6.4-8.2) Albumin 3.5 g/dL (3.4-5.0) Albumin/Globulin Ratio 1.2 (1.0-1.7) Triglycerides Level 105 mg/dL (0-150) Cholesterol Level 135 mg/dL (0-200) LDL Cholesterol, Calculated 74 mg/dL (0-100) VLDL Cholesterol, Calculated 21 mg/dL (0-40) Non-HDL Cholesterol Calculated 95 mg/dL (0-129) HDL Cholesterol 40 mg/dL (40-60) Cholesterol/HDL Ratio 3.4 Thyroid Stimulating Hormone (TSH) 1.033 uIU/mL (0.358-3.74) Laboratory Tests Test 09/15/19 21:00 09/16/19 10:05 White Blood Count 7.0 x10^3/uL (4.0-11.0) Red Blood Count 4.24 x10^6/uL (4.30-5.70) Hemoglobin 13.1 g/dL (13.0-17.5) Hematocrit 37.0 % (39.0-53.0) Mean Corpuscular Volume 87 fL (79-100) Mean Corpuscular Hemoglobin 31 pg (25-35) Mean Corpuscular Hemoglobin Concent 35 g/dL (31-37) Red Cell Distribution Width 13.2 % (11.5-14.5) Platelet Count 204 x10^3/uL (140-400) Neutrophils (%) (Auto) 61 % (31-73) Lymphocytes (%) (Auto) 25 % (24-48) Monocytes (%) (Auto) 10 % (0-9) Eosinophils (%) (Auto) 3 % (0-3) Basophils (%) (Auto) 1 % (0-3) Neutrophils # (Auto) 4.3 x10^3/uL (1.8-7.7) Lymphocytes # (Auto) 1.7 x10^3/uL (1.0-4.8) Monocytes # (Auto) 0.7 x10^3/uL (0.0-1.1) Eosinophils # (Auto) 0.2 x10^3/uL (0.0-0.7) Basophils # (Auto) 0.1 x10^3/uL (0.0-0.2) Prothrombin Time 13.6 SEC (11.7-14.0) Prothromb Time International Ratio 1.1 (0.8-1.1) Activated Partial Thromboplast Time 35 SEC (24-38) Sodium Level 141 mmol/L (136-145) Potassium Level 3.8 mmol/L (3.5-5.1) Chloride Level 107 mmol/L (98-107) Carbon Dioxide Level 26 mmol/L (21-32) Anion Gap 8 (6-14) Blood Urea Nitrogen 14 mg/dL (8-26) Creatinine 1.3 mg/dL (0.7-1.3) Estimated GFR (Cockcroft-Gault) 52.5 BUN/Creatinine Ratio 11 (6-20) Glucose Level 133 mg/dL (70-99) Calcium Level 8.3 mg/dL (8.5-10.1) Total Bilirubin 0.3 mg/dL (0.2-1.0) Aspartate Amino Transf (AST/SGOT) 15 U/L (15-37) Alanine Aminotransferase (ALT/SGPT) 19 U/L (16-63) Alkaline Phosphatase 68 U/L (46-116) Troponin I Quantitative < 0.017 ng/mL (0.000-0.055) Total Protein 6.4 g/dL (6.4-8.2) Albumin 3.5 g/dL (3.4-5.0) Albumin/Globulin Ratio 1.2 (1.0-1.7) Triglycerides Level 105 mg/dL (0-150) Cholesterol Level 135 mg/dL (0-200) LDL Cholesterol, Calculated 74 mg/dL (0-100) VLDL Cholesterol, Calculated 21 mg/dL (0-40) Non-HDL Cholesterol Calculated 95 mg/dL (0-129) HDL Cholesterol 40 mg/dL (40-60) Cholesterol/HDL Ratio 3.4 Thyroid Stimulating Hormone (TSH) 1.033 uIU/mL (0.358-3.74) Assessment/Plan Assessment/Plan This patient is 84-year-old man with past medical history of multiple medical problems he presented to emergency room with acute onset of symptoms of left- sided weakness, numbness. Patient was having some slurring of speech. Patient presented to emergency room as a stroke activation. Patient denied any complaint of headache nausea or vomiting chest pain shortness of breath. Patient was within the window for IV t-PA. Patient accepted risk and benefit for IV t-PA. Patient received IV t-PA patient had improvement in symptoms. Patient was admitted to ICU for further monitoring., workup. 84-year-old man patient is currently status post TPA. Patient had improvement in symptoms after TPA. Patient had initial stroke scale of 6. Had elevated blood pressure on presentation. Patient was admitted under post TPA protocol, close monitoring CT brain did not show any evidence of acute intracranial etiology no evidence of acute hemorrhage. Changes noted for chronic small vessel ischemic disease, [facility] and neck did not show any evidence of large vessel occlusion Will get to MRI of brain to further evaluate. Patient will get PT OT, 2-D echo, patient was started on statin check lipid profile, hypertension continue treat and monitor, as history of aortic stenosis, status post surgery, continue medical management. Plan discussed with patient, patient's family member at length at bedside FIDEL WHITLOCK MD Sep 16, 2019 15:23
[2019-09-17] VITALS: BP 119/69
[2019-09-17 05:42] LABS: HEMOGLOBIN A1C 6.1 % (4.8-5.6)
[2019-09-17] MEDS: ASPIRIN ENTERIC COATED 81 MG TABLET.DR. PO SCH (08:00)
[2019-09-17 09:00] VITALS: BP 128/64
--- NOTE | 2019-09-17 10:41 | PDOC3 ---
Discharge Summary Visit Information Date of Admission: Sep 15, 2019 Date of Discharge: Sep 17, 2019 Final Diagnosis Problems Medical Problems: (1) Ischemic stroke Status: Acute Brief Hospital Course Allergies Allergies Coded Allergies Type Severity Reaction Last Updated Verified No Known Drug Allergies 09/19/15 No Vital Signs Vital Signs Date Time Temp Pulse Resp B/P (MAP) Pulse Ox O2 Delivery O2 Flow Rate FiO2 09/17/19 09:00 98.5 86 18 128/64 (85) 97 Room Air 98.5 Lab Results Laboratory Tests Test 09/15/19 21:00 09/16/19 10:05 White Blood Count 7.0 x10^3/uL (4.0-11.0) Red Blood Count 4.24 x10^6/uL (4.30-5.70) Hemoglobin 13.1 g/dL (13.0-17.5) Hematocrit 37.0 % (39.0-53.0) Mean Corpuscular Volume 87 fL (79-100) Mean Corpuscular Hemoglobin 31 pg (25-35) Mean Corpuscular Hemoglobin Concent 35 g/dL (31-37) Red Cell Distribution Width 13.2 % (11.5-14.5) Platelet Count 204 x10^3/uL (140-400) Neutrophils (%) (Auto) 61 % (31-73) Lymphocytes (%) (Auto) 25 % (24-48) Monocytes (%) (Auto) 10 % (0-9) Eosinophils (%) (Auto) 3 % (0-3) Basophils (%) (Auto) 1 % (0-3) Neutrophils # (Auto) 4.3 x10^3/uL (1.8-7.7) Lymphocytes # (Auto) 1.7 x10^3/uL (1.0-4.8) Monocytes # (Auto) 0.7 x10^3/uL (0.0-1.1) Eosinophils # (Auto) 0.2 x10^3/uL (0.0-0.7) Basophils # (Auto) 0.1 x10^3/uL (0.0-0.2) Prothrombin Time 13.6 SEC (11.7-14.0) Prothromb Time International Ratio 1.1 (0.8-1.1) Activated Partial Thromboplast Time 35 SEC (24-38) Sodium Level 141 mmol/L (136-145) Potassium Level 3.8 mmol/L (3.5-5.1) Chloride Level 107 mmol/L (98-107) Carbon Dioxide Level 26 mmol/L (21-32) Anion Gap 8 (6-14) Blood Urea Nitrogen 14 mg/dL (8-26) Creatinine 1.3 mg/dL (0.7-1.3) Estimated GFR (Cockcroft-Gault) 52.5 BUN/Creatinine Ratio 11 (6-20) Glucose Level 133 mg/dL (70-99) Calcium Level 8.3 mg/dL (8.5-10.1) Total Bilirubin 0.3 mg/dL (0.2-1.0) Aspartate Amino Transf (AST/SGOT) 15 U/L (15-37) Alanine Aminotransferase (ALT/SGPT) 19 U/L (16-63) Alkaline Phosphatase 68 U/L (46-116) Troponin I Quantitative < 0.017 ng/mL (0.000-0.055) Total Protein 6.4 g/dL (6.4-8.2) Albumin 3.5 g/dL (3.4-5.0) Albumin/Globulin Ratio 1.2 (1.0-1.7) Hemoglobin A1c 6.1 % (4.8-5.6) Triglycerides Level 105 mg/dL (0-150) Cholesterol Level 135 mg/dL (0-200) LDL Cholesterol, Calculated 74 mg/dL (0-100) VLDL Cholesterol, Calculated 21 mg/dL (0-40) Non-HDL Cholesterol Calculated 95 mg/dL (0-129) HDL Cholesterol 40 mg/dL (40-60) Cholesterol/HDL Ratio 3.4 Thyroid Stimulating Hormone (TSH) 1.033 uIU/mL (0.358-3.74) Brief Hospital Course 84-year-old male with hx of 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 last known normal around 730 pm 09/15/19. patient called son and advised to call ambulance. came via ambulance for a stroke alert. patient denied any aphasia, facial numbness, tingling, focal weakness. upon arrival VSS. upon arrival stroke code activated. besides left arm weakness no other symptoms. patient had NIH stroke scale 6. TPA given with complete resolution of symptoms. patient had some transient elevated BP and cardene drip given. transfered to ICU. ASSESSMENT Left Sided weakness secondary to CVA Severe s/p AVR and MVR previously on coumadin but now OFF AC Prostate cancer hx of post op afib PLAN patient received TPA in ED with complete resolution of symptoms. VSS stable. no neuro deficits while hospitalized lipids, a1c, tsh all stable maintained on ASA awaiting MRI results and neuro clearance before discharge today as patient anxious to be discharged cleared by speech no issues with mobility. PT/OT/Speech consult stroke education neuro consulted pending TTE with bubble study patient to discharge today if MRI, TTE and clearance by neuro. Discharge Information Condition at Discharge: Improved Follow Up: Weeks (PCP in 2 weeks) Disposition/Orders: D/C to Home Scheduled Cyanocobalamin (Vitamin B-12) (Vitamin B-12) 1,000 Mcg Capsule, 1,000 MCG PO DAILY for supplement, (Reported) Entered as Reported by: MELISSA TROTTER on 09/16/19 0645 Last Action: HELD on 09/16/19 110 by LEONARDO LAI MD Miscellaneous Medications Aspirin (Aspirin) 81 Mg Tab.chew, 81 MG PO, (Reported) Entered as Reported by: Jayden John on 09/24/15 1220 Last Action: HELD on 09/16/19 1101 by LEONARDO LAI MD Justicifation of Admission Dx: Justifications for Admission: Justification of Admission Dx: Yes Stroke - Ischemic: Stroke-Ischemic LEONARDO LAI MD Sep 17, 2019 10:41
[2019-09-17] MEDS ORDERED: ATOR10TA60 PO (13:25)
--- NOTE | 2019-09-17 13:54 | RAD ---
EXAMINATION: Magnetic resonance imaging (MRI) of the brain and brainstem without contrast 09/17/2019 8:00 AM HISTORY: 24 hours status post TPA. Stroke TECHNIQUE: Multiplanar multi-weighted MRI of the brain and brainstem was performed without intravenous contrast using the general brain protocol. COMPARISON: None available. FINDINGS: The scalp and calvarium are normal. The superior sagittal sinus demonstrates normal venous flow. The corpus callosum is normal in shape and signal intensity. The posterior fossa is unremarkable. The pituitary and sella are normal. The brainstem and craniocervical junction are unremarkable. Cortical diffusion signal hyperintensity is identified involving the lateral right lateral parietal lobe. Minimal susceptibility artifact is suggestive of petechial hemorrhage. Focus of susceptibility artifact in the right middle frontal gyrus (series 9, image 17) suggestive of microhemorrhage. T2 signal hyperintensity within the area of diffusion signal hyperintensity suggestive of cytotoxic edema. No significant mass effect or midline shift. Senescent calcifications are identified within the basal ganglia. Ventricles, sulci and basal cisterns are mildly prominent compatible with mild generalized cerebral volume loss The paranasal sinuses are normal. The visualized portions of the mastoids are unremarkable. The orbits appear normal. Normal flow voids are demonstrated in the carotid arteries and basilar artery. IMPRESSION: Acute/subacute ischemic changes are identified in the lateral right parietal lobe with associated petechial hemorrhage. No mass effect or midline shift. There is associated cytotoxic edema along the cortex. Mild generalized cerebral volume loss. Electronically signed by: Elinor Karimi MD (09/17/2019 1:51 PM) [facility]
[2019-09-17] MEDS ORDERED: ATORVASTATIN CALCIUM 10 MG TABLET. PO SCH ×2 (14:15→21:00)
--- NOTE | 2019-09-17 14:21 | PDOC ---
PROGRESS NOTES Chief Complaint Chief Complaint ASSESSMENT Left Sided weakness secondary to Acute/subacute ischemic stroke in the lateral right parietal lobe with associated petechial hemorrhage Severe s/p AVR and MVR previously on coumadin but now OFF AC Prostate cancer hx of post op afib PLAN patient received TPA in ED with complete resolution of symptoms. VSS stable. no neuro deficits while hospitalized lipids, a1c, tsh all stable maintained on ASA MRI shows stroke cleared by speech no issues with mobility. PT/OT/Speech consulted stroke education neuro consulted pending TTE with bubble study which will happen 09/17, at which time patient can leave if normal. History of Present Illness History of Present Illness patient anxious to leave the hospital but informed needs echo with bubble study. no neuro deficits. Vitals Vitals Vital Signs Date Time Temp Pulse Resp B/P (MAP) Pulse Ox O2 Delivery O2 Flow Rate FiO2 09/17/19 09:00 98.5 86 18 128/64 (85) 97 Room Air 98.5 Physical Exam General: Alert Heart: Regular rate Lungs: Clear Abdomen: Normal bowel sounds Extremities: No clubbing Skin: No rashes Assessment and Plan Assessmemt and Plan Problems Medical Problems: (1) Ischemic stroke Status: Acute Comment Review of Relevant I have reviewed the following items yin (where applicable) has been applied. Labs Laboratory Tests Test 09/15/19 21:00 09/16/19 10:05 White Blood Count 7.0 x10^3/uL (4.0-11.0) Red Blood Count 4.24 x10^6/uL (4.30-5.70) Hemoglobin 13.1 g/dL (13.0-17.5) Hematocrit 37.0 % (39.0-53.0) Mean Corpuscular Volume 87 fL (79-100) Mean Corpuscular Hemoglobin 31 pg (25-35) Mean Corpuscular Hemoglobin Concent 35 g/dL (31-37) Red Cell Distribution Width 13.2 % (11.5-14.5) Platelet Count 204 x10^3/uL (140-400) Neutrophils (%) (Auto) 61 % (31-73) Lymphocytes (%) (Auto) 25 % (24-48) Monocytes (%) (Auto) 10 % (0-9) Eosinophils (%) (Auto) 3 % (0-3) Basophils (%) (Auto) 1 % (0-3) Neutrophils # (Auto) 4.3 x10^3/uL (1.8-7.7) Lymphocytes # (Auto) 1.7 x10^3/uL (1.0-4.8) Monocytes # (Auto) 0.7 x10^3/uL (0.0-1.1) Eosinophils # (Auto) 0.2 x10^3/uL (0.0-0.7) Basophils # (Auto) 0.1 x10^3/uL (0.0-0.2) Prothrombin Time 13.6 SEC (11.7-14.0) Prothromb Time International Ratio 1.1 (0.8-1.1) Activated Partial Thromboplast Time 35 SEC (24-38) Sodium Level 141 mmol/L (136-145) Potassium Level 3.8 mmol/L (3.5-5.1) Chloride Level 107 mmol/L (98-107) Carbon Dioxide Level 26 mmol/L (21-32) Anion Gap 8 (6-14) Blood Urea Nitrogen 14 mg/dL (8-26) Creatinine 1.3 mg/dL (0.7-1.3) Estimated GFR (Cockcroft-Gault) 52.5 BUN/Creatinine Ratio 11 (6-20) Glucose Level 133 mg/dL (70-99) Calcium Level 8.3 mg/dL (8.5-10.1) Total Bilirubin 0.3 mg/dL (0.2-1.0) Aspartate Amino Transf (AST/SGOT) 15 U/L (15-37) Alanine Aminotransferase (ALT/SGPT) 19 U/L (16-63) Alkaline Phosphatase 68 U/L (46-116) Troponin I Quantitative < 0.017 ng/mL (0.000-0.055) Total Protein 6.4 g/dL (6.4-8.2) Albumin 3.5 g/dL (3.4-5.0) Albumin/Globulin Ratio 1.2 (1.0-1.7) Hemoglobin A1c 6.1 % (4.8-5.6) Triglycerides Level 105 mg/dL (0-150) Cholesterol Level 135 mg/dL (0-200) LDL Cholesterol, Calculated 74 mg/dL (0-100) VLDL Cholesterol, Calculated 21 mg/dL (0-40) Non-HDL Cholesterol Calculated 95 mg/dL (0-129) HDL Cholesterol 40 mg/dL (40-60) Cholesterol/HDL Ratio 3.4 Thyroid Stimulating Hormone (TSH) 1.033 uIU/mL (0.358-3.74) Medications Current Medications Iohexol (Omnipaque 350 Mg/ml) 75 ml 1X ONCE IV Last administered on 09/15/19at 20:58; Start 09/15/19 at 20:45; Stop 09/15/19 at 20:46; Status DC Info (CONTRAST GIVEN -- Rx MONITORING) 1 each PRN DAILY PRN MC SEE COMMENTS; Start 09/15/19 at 21:00; Stop 09/17/19 at 20:59 Alteplase, Recombinant 0 ml @ 0 mls/hr 1X ONCE IV Last administered on 09/15/19at 21:31; Start 09/15/19 at 22:00; Stop 09/15/19 at 22:01; Status DC Alteplase, Recombinant 66 ml @ 66 mls/hr Q1H IV Last administered on 09/15/19at 21:32; Start 09/15/19 at 22:00; Stop 09/15/19 at 22:59; Status DC Sodium Chloride 50 ml @ 0 mls/hr 1X ONCE IV Last administered on 09/15/19at 22:32; Start 09/15/19 at 23:00; Stop 09/15/19 at 23:01; Status DC Labetalol HCl (Normodyne Iv Push) 10 mg PRN Q10MIN PRN IVP HYPERTENSION; Start 09/15/19 at 21:15 Nicardipine HCl 50 mg/Sodium Chloride 250 ml @ 25 mls/hr CONT PRN IV SEE I/O RECORD; Start 09/15/19 at 22:15 Atorvastatin Calcium (Lipitor) 10 mg QHS PO ; Start 09/17/19 at 21:00 Aspirin (Ecotrin) 81 mg DAILYWBKFT PO Last administered on 09/17/19at 08:00; Start 09/17/19 at 08:00 Atorvastatin Calcium (Lipitor) 10 mg 1X PO ; Start 09/17/19 at 14:15 Active Scripts Active Reported Atorvastatin Calcium 10 Mg Tablet 10 Mg PO HS Vitamin B-12 (Cyanocobalamin (Vitamin B-12)) 1,000 Mcg Capsule 1,000 Mcg PO DAILY Aspirin 81 Mg Tab.chew 81 Mg PO Vitals/I & O Vital Sign - Last 24 Hours 09/16/19 09/16/19 09/16/19 09/16/19 15:00 16:00 16:42 17:06 Pulse 82 90 Resp 16 18 B/P (MAP) 136/72 (93) /72 128/75 (92) Pulse Ox 97 97 O2 Delivery Room Air Room Air Room Air 09/16/19 09/16/19 09/17/19 09/17/19 20:00 20:00 00:00 08:00 Temp 97.9 97.9 Pulse 90 85 Resp 18 18 B/P (MAP) 140/72 (94) 119/69 (86) Pulse Ox 99 95 O2 Delivery Room Air Room Air Room Air Room Air 09/17/19 09:00 Temp 98.5 98.5 Pulse 86 Resp 18 B/P (MAP) 128/64 (85) Pulse Ox 97 O2 Delivery Room Air Intake and Output 09/16/19 09/16/19 09/17/19 15:00 23:00 07:00 Intake Total 360 ml Output Total 250 ml 600 ml Balance -250 ml -240 ml Justicifation of Admission Dx: Justifications for Admission: Justification of Admission Dx: Yes Stroke - Ischemic: Stroke-Ischemic LEONARDO LAI MD Sep 17, 2019 14:21
--- NOTE | 2019-09-17 14:23 | NUR ---
MRI brain done today, results called to Dr. Sinclair, neurologist. Patient is very adamant about going home today, however Dr. Sinclair will not clear patient to discharge until ECHO with bubble study is done tomorrow as part of post-stroke workup. RN had long discussion with patient, who expressed his desire to leave AMA earlier. Pt told of the risks of leaving AMA, including possible , and patient has agreed to stay in the hospital another night and receive ECHO tomorrow. Pt's daughter, Brenda, called and notified of update to plan of care. Admitting physician Dr. Chairez also notified.
--- NOTE | 2019-09-17 14:29 | NUR ---
Pt refusing to wear tele patches or be hooked up to monitor at this time. Told of the need to monitor his heart rate and rhythm, still refusing despite suggestions and education. All vital signs this morning up until this time have been stable, pt is A&Ox4, sitting peacefully in room. Visible from nurses desk.
[2019-09-17] MEDS ORDERED: ATORVASTATIN CALCIUM 10 MG TABLET. PO ONE (14:45)
--- NOTE | 2019-09-17 18:19 | PDOC ---
PROGRESS NOTES Assessment Problems Medical Problems: (1) Ischemic stroke Status: Acute Plan 84-year-old man patient is currently status post TPA. Patient had improvement in symptoms after TPA. Patient had initial stroke scale of 6. Had elevated blood pressure on presentation. Patient was admitted under post TPA protocol, close monitoring A graph CT brain did not show any evidence of acute intracranial etiology no evidence of acute hemorrhage. Changes noted for chronic small vessel ischemic disease, [facility] neck did not show any evidence of large vessel occlusion MRI of brain noted. Patient will get PT OT, 2-D echo, patient was started on statin check lipid profile, hypertension continue treat and monitor, as history of aortic stenosis, status post surgery, continue medical management. Echo pending. Plan discussed with patient, patient's family member at length at bedside Subjective He is feeling better no acute events Objective Vital Signs Date Time Temp Pulse Resp B/P (MAP) Pulse Ox O2 Delivery O2 Flow Rate FiO2 09/17/19 09:00 98.5 86 18 128/64 (85) 97 Room Air 98.5 Intake and Output 09/17/19 07:00 Intake Total 360 ml Output Total 850 ml Balance -490 ml Intake Oral 360 ml Output Urine Total 850 ml PHYSICAL EXAM General no acute distress. HEENT: Normocephalic and atraumatic. NECK: Supple without bruit Respiratory: Clear to auscultation bilaterally Heart: Regular rate and rhythm, S1S2 normal NEUROLOGIC: Mental status Alert oriented. Cranial nerve equally reactive pupils, and intact extraocular movements. No facial asymmetry. Palate elevates and tongue protrudes in midline. Reflexes are 1-2 with flexor plantar responses. Coordination no dysmetria Strength able to move all exts equally. Sensory exam is intact for light touch and pinprick. Gait in bed. Review of Relevant I have reviewed the following items yin (where applicable) has been applied. Labs Laboratory Tests Test 09/15/19 21:00 09/16/19 10:05 White Blood Count 7.0 x10^3/uL (4.0-11.0) Red Blood Count 4.24 x10^6/uL (4.30-5.70) Hemoglobin 13.1 g/dL (13.0-17.5) Hematocrit 37.0 % (39.0-53.0) Mean Corpuscular Volume 87 fL (79-100) Mean Corpuscular Hemoglobin 31 pg (25-35) Mean Corpuscular Hemoglobin Concent 35 g/dL (31-37) Red Cell Distribution Width 13.2 % (11.5-14.5) Platelet Count 204 x10^3/uL (140-400) Neutrophils (%) (Auto) 61 % (31-73) Lymphocytes (%) (Auto) 25 % (24-48) Monocytes (%) (Auto) 10 % (0-9) Eosinophils (%) (Auto) 3 % (0-3) Basophils (%) (Auto) 1 % (0-3) Neutrophils # (Auto) 4.3 x10^3/uL (1.8-7.7) Lymphocytes # (Auto) 1.7 x10^3/uL (1.0-4.8) Monocytes # (Auto) 0.7 x10^3/uL (0.0-1.1) Eosinophils # (Auto) 0.2 x10^3/uL (0.0-0.7) Basophils # (Auto) 0.1 x10^3/uL (0.0-0.2) Prothrombin Time 13.6 SEC (11.7-14.0) Prothromb Time International Ratio 1.1 (0.8-1.1) Activated Partial Thromboplast Time 35 SEC (24-38) Sodium Level 141 mmol/L (136-145) Potassium Level 3.8 mmol/L (3.5-5.1) Chloride Level 107 mmol/L (98-107) Carbon Dioxide Level 26 mmol/L (21-32) Anion Gap 8 (6-14) Blood Urea Nitrogen 14 mg/dL (8-26) Creatinine 1.3 mg/dL (0.7-1.3) Estimated GFR (Cockcroft-Gault) 52.5 BUN/Creatinine Ratio 11 (6-20) Glucose Level 133 mg/dL (70-99) Calcium Level 8.3 mg/dL (8.5-10.1) Total Bilirubin 0.3 mg/dL (0.2-1.0) Aspartate Amino Transf (AST/SGOT) 15 U/L (15-37) Alanine Aminotransferase (ALT/SGPT) 19 U/L (16-63) Alkaline Phosphatase 68 U/L (46-116) Troponin I Quantitative < 0.017 ng/mL (0.000-0.055) Total Protein 6.4 g/dL (6.4-8.2) Albumin 3.5 g/dL (3.4-5.0) Albumin/Globulin Ratio 1.2 (1.0-1.7) Hemoglobin A1c 6.1 % (4.8-5.6) Triglycerides Level 105 mg/dL (0-150) Cholesterol Level 135 mg/dL (0-200) LDL Cholesterol, Calculated 74 mg/dL (0-100) VLDL Cholesterol, Calculated 21 mg/dL (0-40) Non-HDL Cholesterol Calculated 95 mg/dL (0-129) HDL Cholesterol 40 mg/dL (40-60) Cholesterol/HDL Ratio 3.4 Thyroid Stimulating Hormone (TSH) 1.033 uIU/mL (0.358-3.74) Medications Current Medications Iohexol (Omnipaque 350 Mg/ml) 75 ml 1X ONCE IV Last administered on 09/15/19at 20:58; Start 09/15/19 at 20:45; Stop 09/15/19 at 20:46; Status DC Info (CONTRAST GIVEN -- Rx MONITORING) 1 each PRN DAILY PRN MC SEE COMMENTS; Start 09/15/19 at 21:00; Stop 09/17/19 at 20:59 Alteplase, Recombinant 0 ml @ 0 mls/hr 1X ONCE IV Last administered on 09/15/19at 21:31; Start 09/15/19 at 22:00; Stop 09/15/19 at 22:01; Status DC Alteplase, Recombinant 66 ml @ 66 mls/hr Q1H IV Last administered on 09/15/19at 21:32; Start 09/15/19 at 22:00; Stop 09/15/19 at 22:59; Status DC Sodium Chloride 50 ml @ 0 mls/hr 1X ONCE IV Last administered on 09/15/19at 22:32; Start 09/15/19 at 23:00; Stop 09/15/19 at 23:01; Status DC Labetalol HCl (Normodyne Iv Push) 10 mg PRN Q10MIN PRN IVP HYPERTENSION; Start 09/15/19 at 21:15 Nicardipine HCl 50 mg/Sodium Chloride 250 ml @ 25 mls/hr CONT PRN IV SEE I/O RECORD; Start 09/15/19 at 22:15 Atorvastatin Calcium (Lipitor) 10 mg QHS PO ; Start 09/17/19 at 21:00 Aspirin (Ecotrin) 81 mg DAILYWBKFT PO Last administered on 09/17/19at 08:00; Start 09/17/19 at 08:00 Atorvastatin Calcium (Lipitor) 10 mg 1X PO ; Start 09/17/19 at 14:15; Stop 09/17/19 at 14:35; Status DC Atorvastatin Calcium (Lipitor) 10 mg 1X ONCE PO ; Start 09/17/19 at 14:45; Stop 09/17/19 at 14:46; Status DC Active Scripts Active Reported Atorvastatin Calcium 10 Mg Tablet 10 Mg PO HS Vitamin B-12 (Cyanocobalamin (Vitamin B-12)) 1,000 Mcg Capsule 1,000 Mcg PO DAILY Aspirin 81 Mg Tab.chew 81 Mg PO Vitals/I & O Vital Sign - Last 24 Hours 09/16/19 09/16/19 09/17/19 09/17/19 20:00 20:00 00:00 08:00 Temp 97.9 97.9 Pulse 90 85 Resp 18 18 B/P (MAP) 140/72 (94) 119/69 (86) Pulse Ox 99 95 O2 Delivery Room Air Room Air Room Air Room Air 09/17/19 09:00 Temp 98.5 98.5 Pulse 86 Resp 18 B/P (MAP) 128/64 (85) Pulse Ox 97 O2 Delivery Room Air Intake and Output 09/16/19 09/16/19 09/17/19 15:00 23:00 07:00 Intake Total 360 ml Output Total 250 ml 600 ml Balance -250 ml -240 ml Justicifation of Admission Dx: Justifications for Admission: Justification of Admission Dx: Yes Stroke - Ischemic: Stroke-Ischemic FIDEL WHITLOCK MD Sep 17, 2019 18:19
[2019-09-17 20:00] VITALS: BP 113/65
[2019-09-18] VITALS: BP 113/69
[2019-09-18 06:00] VITALS: BP 109/68
[2019-09-18] MEDS: ASPIRIN ENTERIC COATED 81 MG TABLET.DR. PO SCH (07:43)
[2019-09-18] MEDS ORDERED: ASPIRIN ENTERIC COATED 81 MG TABLET.DR. PO ONE (08:30)
--- NOTE | 2019-09-18 09:13 | PDOC2 ---
DARRYL MCGEE [employer]INE[employer] 09/18/19 0913: CARDIAC CONSULT DATE OF CONSULT Date of Consult DATE: 09/18/19 TIME: 08:48 REASON FOR CONSULT Reason for Consult: ? AFIB, need LINQ REFERRING PHYSICIAN Referring Physician: Dr. Fischer SOURCE Source: Chart review HISTORY OF PRESENT ILLNESS HISTORY OF PRESENT ILLNESS This is an 84 yo male who presented secondary to new onset of left-sided weakness. TPA administered upon arrival. Symptoms have resolved. Patient noted with frequent PACs and PVCs on telemetry overnight, which prompted this consult. Patient does have a h/o PAFIB following AVR about 4 years ago[address] Salazar at the [facility]. He denies any chest pain, palpitations, dizziness, diaphoresis, SOA, or nausea/vomiting. PAST MEDICAL HISTORY Cardiovascular: AFIB, Valve insufficiency CENTRAL NERVOUS SYSTEM: CVA Renal/: Prostate Ca., Other (urinary retention ) PAST SURGICAL HISTORY Past Surgical History: Other (TURP, aortic valve replacement and mitral valve repair 09/13) FAMILY HISTORY Family History: Other (noncontributory ) SOCIAL HISTORY Smoke: No ALCOHOL: none Drugs: None Lives: with Family CURRENT MEDICATIONS CURRENT MEDICATIONS Current Medications Medications (Trade) Dose Ordered Sig/Caitlin Route PRN Reason Start Time Stop Time Status Last Admin Dose Admin Atorvastatin Calcium (Lipitor) 10 mg QHS PO 09/17/19 21:00 09/17/19 21:08 ALLERGIES ALLERGIES: Coded Allergies: No Known Drug Allergies (Unverified , 09/19/15) ROS Review of System 14 point ROS conducted with pertinent positives noted above in hPI PHYSICAL EXAM General: Alert, Oriented X3, Cooperative, No acute distress HEENT: Atraumatic, Mucous membr. moist/pink Lungs: Clear to auscultation Heart: Regular rate, Other (2/6 systolic murmur ) Abdomen: Soft, No tenderness Extremities: No cyanosis, No edema, Normal pulses Skin: No significant lesion Neuro: Normal speech, Sensation intact Psych/Mental Status: Mental status NL, Mood NL MUSCULOSKELETAL: Osteoarthritic changes both hands VITALS/I&O VITALS/I&O: Vital Signs Date Time Temp Pulse Resp B/P (MAP) Pulse Ox O2 Delivery O2 Flow Rate FiO2 09/18/19 08:00 Room Air 09/18/19 06:00 98.6 103 18 109/68 (82) 97 98.6 I & O 09/17/19 09/17/19 09/18/19 15:00 23:00 07:00 Intake Total 500 ml 480 ml 120 ml Balance 500 ml 480 ml 120 ml ASSESSMENT/PLAN ASSESSMENT/PLAN 1. Acute CVA s/p TPA. Symptoms greatly resolved. 2. Valvular disease s/p bioprosthetic AVR and MV repair with ring 2015. 3. PAFIB; episode follow AVE. previously of warfarin, but has been off OAC as n ot further AFIB was noted. Tele shows SR with frequent PAC's and PVC's. No clear AFIB noted Recommendations TSH ASA, statin therapy Echo to assess LV systolic function, valvular disease. Patient does not meet criteria for bubble study given advance age Outpatient event monitor to assess for AFIB, guide therapy. Will defer to primary lockstitch waistline joiner. Follow up with JARRELL Ryan MD 09/18/19 3813: CARDIAC CONSULT ASSESSMENT/PLAN ASSESSMENT/PLAN Patient seen and examined. Agree with TRANSMISSION REPAIRER's assessment and plan. Patient presented with acue CVA and received tPA with improvement in symptoms Tele showed sinus rhythm without any atrial fibrillation 2D echo showed normal LVF, normally functioning bioprosthetic AVR and no mitral stenosis/regurg Consider outpatient event monitor/loop recorder with primary lockstitch waistline joiner Thank you for your consultation DARRYL MCGEE APRN Sep 18, 2019 09:13 JARRELL CHIRINOS MD Sep 18, 2019 18:13
[2019-09-18] MEDS ORDERED: ASPI325T8 PO (11:22)
--- NOTE | 2019-09-18 11:28 | PDOC ---
PROGRESS NOTES Assessment Problems Medical Problems: (1) Ischemic stroke Status: Acute Lateral right parietal lobeinfarct with associated petechial hemorrhage. Left-sided weakness and ataxia, resolved after TPA. Possible episode of atrial fibrillation Plan Cardiology consult, needs evaluation for whether a fib is frequent enough to warrant and a coagulation, possible LINQ recorder. Otherwise aspirin, statin, blood pressure control Okay for discharge after cardiology sees Follow-up with neurology as needed. Objective Vital Signs Date Time Temp Pulse Resp B/P (MAP) Pulse Ox O2 Delivery O2 Flow Rate FiO2 09/18/19 08:00 Room Air 09/18/19 06:00 98.6 103 18 109/68 (82) 97 98.6 Intake and Output 09/18/19 07:00 Intake Total 1100 ml Balance 1100 ml Intake Oral 1100 ml # Voids 3 PHYSICAL EXAM Alert. Oriented to time, place and person. PERRL. EOMI. CN: no focal findings. Muscle tone: normal. Muscle strength: 4/5 DTR: 1+ Plantar reflex: flexor Gait: a little unsteady. Sensory exam: no abnormal findings. No cerebellar signs elicited. Review of Relevant I have reviewed the following items yin (where applicable) has been applied. Medications Current Medications Iohexol (Omnipaque 350 Mg/ml) 75 ml 1X ONCE IV Last administered on 09/15/19at 20:58; Start 09/15/19 at 20:45; Stop 09/15/19 at 20:46; Status DC Info (CONTRAST GIVEN -- Rx MONITORING) 1 each PRN DAILY PRN MC SEE COMMENTS; Start 09/15/19 at 21:00; Stop 09/17/19 at 20:59; Status DC Alteplase, Recombinant 0 ml @ 0 mls/hr 1X ONCE IV Last administered on 09/15/19at 21:31; Start 09/15/19 at 22:00; Stop 09/15/19 at 22:01; Status DC Alteplase, Recombinant 66 ml @ 66 mls/hr Q1H IV Last administered on 09/15/19at 21:32; Start 09/15/19 at 22:00; Stop 09/15/19 at 22:59; Status DC Sodium Chloride 50 ml @ 0 mls/hr 1X ONCE IV Last administered on 09/15/19at 22:32; Start 09/15/19 at 23:00; Stop 09/15/19 at 23:01; Status DC Labetalol HCl (Normodyne Iv Push) 10 mg PRN Q10MIN PRN IVP HYPERTENSION; Start 09/15/19 at 21:15 Nicardipine HCl 50 mg/Sodium Chloride 250 ml @ 25 mls/hr CONT PRN IV SEE I/O RECORD; Start 09/15/19 at 22:15 Atorvastatin Calcium (Lipitor) 10 mg QHS PO Last administered on 09/17/19at 21:08; Start 09/17/19 at 21:00 Aspirin (Ecotrin) 81 mg DAILYWBKFT PO Last administered on 09/18/19at 07:43; Start 09/17/19 at 08:00; Stop 09/18/19 at 08:13; Status DC Atorvastatin Calcium (Lipitor) 10 mg 1X PO ; Start 09/17/19 at 14:15; Stop 09/17/19 at 14:35; Status DC Atorvastatin Calcium (Lipitor) 10 mg 1X ONCE PO ; Start 09/17/19 at 14:45; Stop 09/17/19 at 14:46; Status DC Aspirin (Ecotrin) 325 mg DAILYWBKFT PO ; Start 09/19/19 at 08:00 Aspirin (Ecotrin) 243 mg ONCE ONCE PO ; Start 09/18/19 at 08:30; Stop 09/18/19 at 08:31; Status DC Active Scripts Active Reported Aspirin 325 Mg Tablet 1 Tab PO DAILY Atorvastatin Calcium 10 Mg Tablet 10 Mg PO HS Vitamin B-12 (Cyanocobalamin (Vitamin B-12)) 1,000 Mcg Capsule 1,000 Mcg PO DAILY Vitals/I & O Vital Sign - Last 24 Hours 09/17/19 09/17/19 09/18/19 09/18/19 20:00 20:00 00:00 06:00 Temp 98.7 98.0 98.6 98.7 98.0 98.6 Pulse 102 77 103 Resp 19 16 18 B/P (MAP) 113/65 (81) 113/69 (84) 109/68 (82) Pulse Ox 97 96 97 O2 Delivery Room Air Room Air Room Air Room Air 09/18/19 08:00 O2 Delivery Room Air Intake and Output 0 09/17/19 09/17/19 09/18/19 15:00 23:00 07:00 Intake Total 500 ml 480 ml 120 ml Balance 500 ml 480 ml 120 ml Images Magnetic resonance imaging (MRI) of the brain and brainstem without contrast 09/17/2019 8:00 AM HISTORY: 24 hours status post TPA. Stroke TECHNIQUE: Multiplanar multi-weighted MRI of the brain and brainstem was performed without intravenous contrast using the general brain protocol. COMPARISON: None available. FINDINGS: The scalp and calvarium are normal. The superior sagittal sinus demonstrates normal venous flow. The corpus callosum is normal in shape and signal intensity. The posterior fossa is unremarkable. The pituitary and sella are normal. The brainstem and craniocervical junction are unremarkable. Cortical diffusion signal hyperintensity is identified involving the lateral right lateral parietal lobe. Minimal susceptibility artifact is suggestive of petechial hemorrhage. Focus of susceptibility artifact in the right middle frontal gyrus (series 9, image 17) suggestive of microhemorrhage. T2 signal hyperintensity within the area of diffusion signal hyperintensity suggestive of cytotoxic edema. No significant mass effect or midline shift. Senescent calcifications are identified within the basal ganglia. Ventricles, sulci and basal cisterns are mildly prominent compatible with mild generalized cerebral volume loss The paranasal sinuses are normal. The visualized portions of the mastoids are unremarkable. The orbits appear normal. Normal flow voids are demonstrated in the carotid arteries and basilar artery. IMPRESSION: Acute/subacute ischemic changes are identified in the lateral right parietal lobe with associated petechial hemorrhage. No mass effect or midline shift. There is associated cytotoxic edema along the cortex. Mild generalized cerebral volume loss. Justicifation of Admission Dx: Justifications for Admission: Justification of Admission Dx: Yes Stroke - Ischemic: Stroke-Ischemic FELICIANO TITUS MD Sep 18, 2019 11:28
[2019-09-18 11:55] VITALS: BP 141/80
--- NOTE | 2019-09-18 12:00 | NUR ---
Patient discharged home to family. Verified with patient pharmacy receipt of Atorvastatin prescription. Belongings in room take with patient.
--- NOTE | 2019-09-18 13:32 | CARD ---
MR#: [id number] Date of Study: 09/18/2019 Ordering Physician: TORRIE CRONIN, Referring Physician: TORRIE CRONIN Tech: Merna Olivares RDCS APPROVED REPORT EXAM: Two-dimensional and M-mode echocardiogram with Doppler and color Doppler. Other Information Quality : Good INDICATION Aortic Valve Disease Mitral Valve Disease Mitral Valve Repair Surgery/Intervention Status/Post Aortic Valve Replacement: Bioprosthetic 2D DIMENSIONS Left Atrium(2D)3.5 (1.6-4.0cm)IVSd1.8 (0.7-1.1cm) Aortic Root(2D)3.0 (2.0-3.7cm)LVDd3.7 (3.9-5.9cm) LVOT Diameter2.0 (1.8-2.4cm)PWd1.2 (0.7-1.1cm) LVDs2.7 (2.5-4.0cm)FS (%) 26.2 % SV30.1 mlLVEF(%)52.3 (>50%) Aortic Valve AoV Peak Robles.155.0cm/sAoV VTI25.4cm AO Peak GR.9.6mmHgLVOT Peak Robles.112.2cm/s AO Mean GR.5mmHgAVA (VMAX)2.26cm2 SYED (VTI)2.30cm2 Mitral Valve MV E Lfecuqgq503.4cm/sMV E Peak Gr.13mmHg MV DECEL [id number] A Qvqykvoo926.0cm/s MV E Mean Gr.6mmHgE/A Ratio0.9 Tricuspid Valve TR P. Bsbgotgz062je/sRAP EIINCCBG8bnTi TR Peak Gr.98bfPtYYND67rkYk Pulmonary Vein S1 Qooyaylv39.6cm/sD2 Begywzzi32.5cm/s LEFT VENTRICLE The left ventricle is normal size. There is mild to moderate concentric left ventricular hypertrophy. The left ventricular systolic function is normal and the ejection fraction is within normal range. T he Ejection Fraction is 55-60%. Septal motion consistent with post-operative state. Transmitral Doppl er flow pattern is Grade I-abnormal relaxation pattern. RIGHT VENTRICLE The right ventricle is normal size. The right ventricle is mildly hypertrophied. The right ventricula r systolic function is normal. ATRIA The left atrium size is normal. The right atrium size is normal. The interatrial septum is intact wit h no evidence for an atrial septal defect or patent foramen ovale as noted on 2-D or Doppler imaging. AORTIC VALVE Doppler and Color Flow revealed trace aortic regurgitation. Calculated aortic valve area is 2.3 cm2 w ith maximum pressure gradient of 10 mmHg and mean pressure gradient of 5 mmHg. 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 The prosthetic aortic valve appears well seated. MITRAL VALVE There is no evidence of mitral valve prolapse. Calculated mitral valve area is 1.2 cm2 with maximum p ressure gradient of 13 mmHg and mean pressure gradient of 6 mmHg. Doppler and Color Flow revealed no mitral valve regurgitation noted. A mitral valve repair is noted and appears to be functioning well. TRICUSPID VALVE The tricuspid valve is normal in structure and function. Doppler and Color Flow revealed trace tricus pid regurgitation. The PA pressure was estimated at 31 mmHg. There is no tricuspid valve stenosis. PULMONIC VALVE The pulmonic valve is not well visualized. Doppler and Color Flow revealed mild pulmonic valvular reg urgitation. There is no pulmonic valvular stenosis. GREAT VESSELS The aortic root is normal in size. The ascending aorta is not well seen. The IVC is normal in size an d collapses >50% with inspiration. PERICARDIAL EFFUSION There is no evidence of significant pericardial effusion. Critical Notification Critical Value: No <Conclusion> The left ventricle is normal size. The left ventricular systolic function is normal and the ejection fraction is within normal range. The Ejection Fraction is 55-60%. Septal motion consistent with post-operative state. There is mild to moderate concentric left ventricular hypertrophy. The prosthetic aortic valve appears well seated. Doppler and Color Flow revealed trace aortic regurgitation. Calculated aortic valve area is 2.3 cm2 with maximum pressure gradient of 10 mmHg and mean pressure g radient of 5 mmHg. Calculated mitral valve area is 1.2 cm2 with maximum pressure gradient of 13 mmHg and mean pressure g radient of 6 mmHg. Doppler and Color Flow revealed no mitral valve regurgitation noted. Doppler and Color Flow revealed trace tricuspid regurgitation. The PA pressure was estimated at 31 mmHg. Signed by : Janusz Kumar MD Electronically Approved : 09/18/2019 13:32:37
--- NOTE | 2019-09-19 04:49 | EKG ---
[facility] [address] [place] [address] Test Date: 2019-09-15 Test Time: 21:02:50 Pat Name: PADDY GLASS Department: Room: Gender: M [employer]ency [employer] Social Worker: : 1935 Requested By: LEXA PARADA Order Number: [id number] Reading MD: Measurements Intervals Moodus Rate: 68 P: GA: QRS: -43 QRSD: 98 T: 100 QT: 410 QTc: 441 Interpretive Statements IRREGULAR RHYTHM, NO P-WAVE FOUND VENTRICULAR PREMATURE COMPLEX(ES) ABNORMAL LEFT AXIS DEVIATION R-S TRANSITION ZONE IN V LEADS DISPLACED TO THE RIGHT LEFT ANTERIOR FASCICULAR BLOCK INCOMPLETE RIGHT BUNDLE BRANCH BLOCK QRS(T) CONTOUR ABNORMALITY CONSIDER ANTEROSEPTAL MYOCARDIAL DAMAGE T ABNORMALITY IN HIGH LATERAL LEADS ABNORMAL ECG RI6.01 No previous ECG available for comparison
[2019-09-19] MEDS ORDERED: ASPIRIN ENTERIC COATED 325 MG TABLET.DR. PO SCH (08:00)
--- NOTE | 2019-09-19 08:49 | DS ---
DATE OF DISCHARGE: 09/18/2019 ADMISSION DIAGNOSIS: Stroke. DISCHARGE DIAGNOSIS: Resolving stroke. CONSULTATIONS: Neurology. PROCEDURES: None. HOSPITAL COURSE: The patient is a pleasant elderly male who presented with stroke symptoms with left-sided weakness. He was given TPA and his symptoms improved. He was admitted. We consulted Neurology, did some physical therapy, occupational therapy and speech therapy. Yesterday, I saw and examined, he was up, walking and more alert. Heart tones were normal. Lungs were clear. We discharged to home. DISPOSITION: Home. ACTIVITY: As tolerated. DIET: Low sodium. MEDICATIONS: Please see the MRAD. TOTAL TIME: 34 minutes. TORRIE CRONIN DO DR: AMINATA/lobito JOB#: [id number] / [id number]
== END 2019-09-18 12:00 | disposition home or self-care (01) | DRG 61 ==
LOC: ER 20:29 → 1 WEST ICU 23:25
PROVIDERS: ADMIT Internal Medicine; ATTEND Internal Medicine
DX: I63.9 Cerebral infarction, unspecified (principal); I61.1 Nontraumatic intracerebral hemorrhage in hemisphere, cortical; G93.6 Cerebral edema; G81.94 Hemiplegia, unspecified affecting left nondominant side; I49.3 Ventricular premature depolarization; R27.0 Ataxia, unspecified; R29.706 NIHSS score 6; I48.0 Paroxysmal atrial fibrillation; Z95.3 Presence of xenogenic heart valve; Z85.46 Personal history of malignant neoplasm of prostate; Z87.891 Personal history of nicotine dependence; Z86.73 Personal history of transient ischemic attack (TIA), and cerebral infarction without residual deficits; Z90.79 Acquired absence of other genital organ(s)
CPT/HCPCS: 36415; 37195; 70450; 70496; 70498; 70551; 71045; 80053; 80061; 83036; 84443; 84484; 85025; 85610; 85730; 93005; 93306; 96360; J2997; Q9967; 92610-GN; 97535-GO; 99285-25; G0378